=== PATIENT | male | born 1985 | race Caucasian/White ===

== ENCOUNTER 2018-04-29 12:44 | Emergency (ER) | payer OTHER ==
[2018-04-29 12:51] VITALS: RESP 18; TEMP 98.6
[2018-04-29] MEDS ORDERED: KETOROLAC TROMETHAMINE 30 MG/ML SOL ONE (13:00)
[2018-04-29] MEDS ORDERED: LORAZEPAM 2 MG/ML SOL ONE ×3 (13:01→15:51)
[2018-04-29] MEDS: KETOROLAC TROMETHAMINE 30 MG/ML SOL IV ONE (13:03)
[2018-04-29] MEDS: LORAZEPAM 2 MG/ML 10ML MDV 2 MG/ML VIAL IV ONE (13:04)
[2018-04-29] MEDS: MORPHINE SULFATE 10 MG/ML SOL IV ONE ×2 (13:15→14:00)
[2018-04-29] MEDS: SODIUM CHLORIDE 0.9% 500 ML 500 ML IV ONE (13:21)
[2018-04-29] MEDS ORDERED: MORPHINE SULFATE 10 MG/ML SOL ONE ×2 (13:24→13:59)
[2018-04-29] MEDS: LORAZEPAM 2 MG/ML SOL IV ONE ×2 (14:30→15:52)
[2018-04-29] MEDS ORDERED: ALBUTEROL/IPRATROPIUM 1 VIAL SOL ONE (14:48)
[2018-04-29] MEDS ORDERED: HYDROMORPHONE HCL 2 MG/ML SOL ONE (15:30)
[2018-04-29] MEDS: HYDROMORPHONE HCL 2 MG/ML SOL IV ONE (15:32)
[2018-04-29 15:34] VITALS: BP 142/85; PULSE 56; O2SAT 100
== END 2018-04-29 19:10 | disposition home or self-care (01) | DRG 552 ==
LOC: ED 12:44
DX: M43.02 Spondylolysis, cervical region (principal); M54.12 Radiculopathy, cervical region; X50.0XXA Overexertion from strenuous movement or load, initial encounter; Z72.0 Tobacco use
CPT/HCPCS: 72141; 93005; 96365; 96374; 96375; 99284; 99285; J1170; J1885; J2060; J2270